=== PATIENT | male | born 1980 | race Caucasian/White ===

== ENCOUNTER 2023-05-24 08:42 | Emergency (ER) | payer BC, SELFPAY ==
[2023-05-24 08:57] VITALS: BP 128/98; PULSE 111; RESP 16; TEMP 37.4; O2SAT 98
--- NOTE | 2023-05-24 09:30 | ED.URI ---
HPI - URI/Sore Throat General Chief Complaint: Upper Respiratory Infection Stated Complaint: headcahe,bodyaches,sore throat Time Seen by Provider: 05/24/23 09:30 History of Present Illness HPI Narrative: 42 y/o male presented for c/o sore throat, nasal congestion, aches, fatigue. Onset one week. denies n/v/d/f/c. denies sick contacts. Taking otc meds without relief. Related Data Allergies Allergy/AdvReac Type Severity Reaction Status Date / Time codeine Allergy Unknown Vomiting Verified 05/24/23 09:03 Review of Systems Review of Systems: CONSTITUTIONAL: Denies body aches, fever, chills, or sweats. EYES: Denies visual changes, redness, or discharge. ENT: reports rhinorrhea, congestion, sore throat CARDIOVASCULAR: Denies chest pain, palpitations, or edema. RESPIRATORY: Denies dyspnea. GASTROINTESTINAL: Denies abdominal pain, nausea, vomiting, or diarrhea. SKIN: Denies rash, itching, or wounds. MUSCULOSKELETAL: Denies back pain, joint pain. [facility] Past Medical History Medical History (Updated 05/24/23 @ 10:21 by Franchesca Mejía APRN) No pertinent past medical history Family History Family History Father Hypertension Family history of diabetes mellitus in first degree relative Mother Hypertension Social History Social History Smoking status: Never smoker Alcohol intake: current Exam Narrative: GENERAL: mildly Ill-appearing, no acute distress. EYES: conjunctivae clear; Right lower lid stye ENT: Mucous membranes moist. TM pearly santos with normal light reflex bilaterally; no tragal tenderness. Oropharynx erythematous without lesions. Tonsils enlarged 2+ without exudate. No drooling, no hoarseness, no trismus, uvula midline. No tripod positioning, hot potato voice, or soft palate swelling. NECK: Supple. No lymphadenopathy CHEST: Clear to auscultation, breath sounds equal. No respiratory distress, speaks in full sentences. HEART: Regular rate and rhythm. No murmur heard. SKIN: Warm, dry, no rash. NEURO: Alert and oriented x3. Course Course Emergency Course: Patient is aware of diagnosis, understands and agrees to treatment plan. Anticipatory guidance given. Patient agrees to follow-up as directed and is aware of reasons to seek care at the emergency department. Portions of this record may have been created with voice recognition software Level of Care: Express Care Visit Vital Signs Vital signs: Vital Signs Temperature 99.4 F 05/24/23 08:57 Pulse Rate 111 H 05/24/23 08:57 Respiratory Rate 16 05/24/23 08:57 Blood Pressure 128/98 H 05/24/23 08:57 Pulse Oximetry 98 05/24/23 08:57 Oxygen Delivery Room Air 05/24/23 08:57 Temperature 99.4 F 05/24/23 08:57 Pulse Rate 111 H 05/24/23 08:57 Respiratory Rate 16 05/24/23 08:57 Blood Pressure 128/98 H 05/24/23 08:57 Pulse Oximetry 98 05/24/23 08:57 Oxygen Delivery Room Air 05/24/23 08:57 MDM - URI/Sore Throat MDM Narrative Medical decision making narrative: strep result reviewed with pt, will treat based on PE/CC. patient has a stye of the right lower lid, he is aware of treatment for this and had no complaints or concerns. Advise supportive treatments. Patient is appropriate for outpatient treatment and follow-up. Differential Diagnosis Differential diagnosis: Likely upper respiratory infection, viral infection and pharyngitis Lab Data Labs: Strep Screen Presumptive Negative *(Reference Range: Negative)* Discharge Plan Discharge Clinical Impression: Upper respiratory infection Patient Disposition: Home, Self-Care Condition: Stable Instructions: Antibiotic Form, Upper Respiratory Infection (ED) Additional Instructions: - Take the antibiotic as directed. Fever and sore throat typically resolve within one
== END 2023-05-24 09:40 | disposition home or self-care (01) ==
PROVIDERS: Emergency Provider Nurse Practitioner Family; PCP Family Medicine
DX: J06.9 Acute upper respiratory infection, unspecified (principal)
CPT/HCPCS: 87081; 87880; 99213; G0463

== ENCOUNTER 2023-05-26 11:48 | Emergency (ER) | payer BC, SELFPAY ==
--- NOTE | ~2023-05-26 | XR_ITS ---
EXAMINATION: XR chest 1V portable DATE: 05/26/2023 15:23 INDICATION: Shortness of breath. Cough and weakness. TECHNIQUE: A single frontal view of the chest was obtained. COMPARISON: None. FINDINGS: There is no pneumonia, pleural effusion, or pneumothorax. The heart size is normal. IMPRESSION: 1. No acute cardiopulmonary disease. Reviewed, dictated and finalized at location E. COOKING OPERATOR
[2023-05-26 12:04] VITALS: BP 133/104; PULSE 128; RESP 18; TEMP 37; O2SAT 98
[2023-05-26 12:44] LABS: Strep Group A RT-PCR NOT DETECTED (Negative)
[2023-05-26 12:56] LABS: Influenza A QL RT-PCR Negative (Negative); Influenza B QL RT-PCR Negative (Negative); RSV RNA, RT-PCR Negative (Negative); SARS-CoV-2 RNA PCR Negative (Negative)
--- NOTE | 2023-05-26 14:08 | ED.URI ---
HPI - URI/Sore Throat General Chief Complaint: Upper Respiratory Infection Stated Complaint: uri/st Time Seen by Provider: 05/26/23 14:07 History of Present Illness HPI Narrative: Patient is a 42-year-old male who presents to the emergency department this afternoon complaining of a sore throat and dehydration. Patient's states that he has been having the symptoms for the past 3 days and initially went to an urgent care who placed him on amoxicillin. Patient has been complaining of ear pain worse on the right ear. Patient states that what prompted him to come to the emergency department today is not being able to take oral fluids due to his sore throat which has caused him to become dehydrated and that was concerning for him. Patient denies any additional symptoms including chest pain, shortness of breath, nausea, vomiting, abdominal pain, dysuria, hematuria, constipation, diarrhea, melena, hematochezia, fevers or chills. Patient also denies any headaches, dizziness, lightheadedness, blurry visions, focal weakness, numbness and or tingling. There are no other modifying, alleviating, or precipitating factors at this time. Related Data Allergies Allergy/AdvReac Type Severity Reaction Status Date / Time codeine Allergy Unknown Vomiting Verified 05/24/23 09:03 Review of Systems Review of Systems: All systems are reviewed and are negative unless stated otherwise in the HPI. [facility] Past Medical History Medical History No pertinent past medical history Family History Family History Father Hypertension Family history of diabetes mellitus in first degree relative Mother Hypertension Social History Social History Smoking status: Never smoker Alcohol intake: current Exam Narrative: General: Alert, awake, afebrile, in no acute distress. HEENT: PERRL, no rhinorrhea, no post nasal drip, oropharynx clear, right tonsillar exudate, no evidence of any peritonsillar abscess, left TM erythema and right bulging TM with good light reflex bilaterally and no drainage, no mastoid swelling or tenderness to palpation. Neck: Trachea midline, no JVD, anterior cervical lymphadenopathy. Cardiovascular: Tachycardic with regular rhythm, no murmurs, rubs or gallops, no peripheral edema. Respiratory: Clear to auscultation bilaterally, no tachypnea, no wheezing, no rhonchi, no rubs, no respiratory distress. Abdomen: Soft, nontender, nondistended, no rebound, no guarding, no peritoneal signs. Musculoskeletal: No joint swelling or deformity, normal muscle tone. Skin: No rashes or petechia, no signs of infection. Psychiatric: Alert and oriented, normal behavior and judgment for situation. Neurological: Alert and oriented to person, place, and time. Follows all commands. No focal deficits, speech is clear and fluent. Course Vital Signs Vital signs: Vital Signs Temperature 98.6 F 05/26/23 12:04 Pulse Rate 128 H 05/26/23 12:04 Respiratory Rate 18 05/26/23 12:04 Blood Pressure 133/104 H 05/26/23 12:04 Pulse Oximetry 98 05/26/23 12:04 Oxygen Delivery Room Air 05/26/23 12:04 Temperature 98.6 F 05/26/23 12:04 Pulse Rate 128 H 05/26/23 12:04 Respiratory Rate 18 05/26/23 12:04 Blood Pressure 133/104 H 05/26/23 12:04 Pulse Oximetry 98 05/26/23 12:04 Oxygen Delivery Room Air 05/26/23 12:04 MDM - URI/Sore Throat MDM Narrative Medical decision making narrative: The patient was evaluated by myself in the emergency department. History is obtained from patient who is an independent historian and physical exam was performed. External medical records were reviewed at this time. IV was established and pertinent tests were ordered. Patient was administered a 1 L fluid bolus with normal saline. Repeat vital signs revealed heart rate of 100 at this
[2023-05-26] MEDS: SODIUM CHLORIDE 0.9% IV 1,000 ML 999 ML IV CONT ×2 (14:27→16:12)
[2023-05-26 15:00] VITALS: BP 128/88; PULSE 107; RESP 16; TEMP 36.7; O2SAT 99
[2023-05-26 15:30] VITALS: BP 128/84; PULSE 103; RESP 16; TEMP 36.8; O2SAT 99
[2023-05-26] MEDS: LIDOCAINE HCL 2% VISC SOLN 15 ML UDC PO (16:13)
[2023-05-26 16:30] VITALS: BP 127/84; PULSE 106; RESP 16; TEMP 36.8; O2SAT 100
[2023-05-26 16:58] VITALS: BP 134/83; PULSE 108; RESP 16; TEMP 36.8; O2SAT 100
== END 2023-05-26 17:49 | disposition home or self-care (01) ==
PROVIDERS: Emergency Medicine; Emergency Provider Emergency Medicine; PCP Family Medicine
DX: H66.90 Otitis media, unspecified, unspecified ear (principal); J06.9 Acute upper respiratory infection, unspecified; Z20.822 Contact with and (suspected) exposure to COVID-19
CPT/HCPCS: 71045; 87637; 87651; 96360; 96361; 99283; J7030

== ENCOUNTER 2023-05-29 10:26 | Inpatient (IN) | payer BC, SELFPAY ==
--- NOTE | ~2023-05-29 | CT_ITS ---
EXAMINATION: CT soft tissue neck w con DATE: 05/29/2023 12:44 INDICATION: Peritonsillar abscess. TECHNIQUE: Computed tomography (CT) of the neck was performed with 75 mL Omnipaque-350 intravenous co ntrast. Automated exposure control and iterative reconstruction technique were employed. The dose-lemuel gth product was 535.85 mGy-cm. COMPARISON: None FINDINGS: The visualized portions of the lung apices demonstrate mild scarring. There is diffuse muco radha thickening in the pharynx. The adenoids and palatine tonsils are enlarged. There is mucosal thick ening in the paranasal sinuses. There is drainage in the nasopharynx. There is mild bilateral high in ternal jugular chain lymphadenopathy. The cervical carotid arteries are normal. There is mild cervica l spondylosis. IMPRESSION: 1. Diffuse mucosal thickening in the pharynx and enlargement of the adenoids and palatine tonsils, co nsistent with inflammation. No drainable abscess. Reviewed, dictated and finalized at location E. CAL RECEPTIONIST MEDICAL ASSISTANT IMPRESSION: 1. Diffuse mucosal thickening in the pharynx and enlargement of the adenoids an d palatine tonsils, consistent with inflammation. No drainable abscess.
[2023-05-29 10:29] VITALS: BP 123/87; PULSE 110; RESP 20; TEMP 36.8; O2SAT 98
--- NOTE | 2023-05-29 11:15 | ED.GENADULT ---
HPI - General Adult General Chief complaint: Skin/Abscess/Foreign Body Stated complaint: Throat swelling Time Seen by Provider: 05/29/23 11:04 History of Present Illness HPI narrative: Patient is a 42 year old male who presents to the emergency department this morning after her stent is Urgent Care due to concern for a throat infection. Patient was seen at our facility by me 3 days ago due to pharyngitis and otitis media. At that time, patient's strep throat swab and COVID/RSV/influenza swabs were also negative. Patient was placed on amoxicillin by his primary care physician prior to his arrival to our ED 3 days ago and patient was instructed to continue the full dose of the amoxicillin and to return to the emergency department if his symptoms do not improve. Patient was noted to be dehydrated and tachycardic since he was not able to tolerate oral fluids secondary to his throat pain. He was provided with pain medications and viscous lidocaine which improved his symptoms and was discharged after symptom control. Today, urgent Care was concerned based on their exam that he is developing peritonsillar abscess since now he is drooling and has a muffled voice. Patient denies any additional symptoms including chest pain, shortness of breath, nausea, vomiting, abdominal pain, dysuria, hematuria, constipation, diarrhea, melena or hematochezia. Patient also denies any headaches, dizziness, lightheadedness, blurry visions, focal weakness, numbness and or tingling. There are no other modifying, alleviating, or precipitating factors at this time. Related Data Allergies Allergy/AdvReac Type Severity Reaction Status Date / Time codeine Allergy Unknown Vomiting Verified 05/29/23 08:44 Review of Systems Review of Systems: All systems are reviewed and are negative unless stated otherwise in the HPI. [facility] Past Medical History Medical History No pertinent past medical history Family History Family History Father Hypertension Family history of diabetes mellitus in first degree relative Mother Hypertension Social History Social History Smoking status: Never smoker Alcohol intake: current Exam Narrative: General: Alert, awake, afebrile, in mild distress. HEENT: PERRL, no rhinorrhea, no post nasal drip, oropharynx uric female with uvula deviation to the left, no visible peritonsillar abscess on the right, tonsillar exudate on the right tonsil. Neck: Trachea midline, no JVD, no lymphadenopathy. Cardiovascular: Tachycardic with regular rhythm, no murmurs, rubs or gallops, no peripheral edema. Respiratory: Clear to auscultation bilaterally, no tachypnea, no wheezing, no rhonchi, no rubs, no respiratory distress. Abdomen: Soft, nontender, nondistended, no rebound, no guarding, no peritoneal signs. Musculoskeletal: No joint swelling or deformity, normal muscle tone. Skin: No rashes or petechia, no signs of infection. Psychiatric: Alert and oriented, normal behavior and judgment for situation. Neurological: Alert and oriented to person, place, and time. Follows all commands. No focal deficits, speech is clear and fluent. Course Vital Signs Vital signs: Vital Signs Temperature 98.3 F 05/29/23 10:29 Pulse Rate 110 H 05/29/23 10:29 Respiratory Rate 20 05/29/23 10:29 Blood Pressure 123/87 05/29/23 10:29 Pulse Oximetry 98 05/29/23 10:29 Oxygen Delivery Room Air 05/29/23 10:29 Temperature 98.3 F 05/29/23 10:29 Pulse Rate 110 H 05/29/23 10:29 Respiratory Rate 20 05/29/23 10:29 Blood Pressure 123/87 05/29/23 10:29 Pulse Oximetry 98 05/29/23 10:29 Oxygen Delivery Room Air 05/29/23 10:29 Medical Decision Making MDM Narrative Medical decision making narrative: The patient was evaluated by myself in the emergency department. [place]
[2023-05-29] MEDS: SODIUM CHLORIDE 0.9% IV 1,000 ML 999 ML IV CONT (12:18)
[2023-05-29 12:23] LABS: Basophils Absolute Auto 0.1 K/mm3 (0.0-0.1); Basophils Percent Auto 0.9 % (0.2-1.2); Eosinophils Percent Auto 0.1 % (0-4.4); Hematocrit 42.9 % (42.0-52.0); Hemoglobin 14.2 g/dL (14.0-18.0); Immature Granulocyte Absolute 0.05 K/mm3 (0.00-0.031); Immature Granulocyte Percent A 0.4 % (0-0.5); Lymphocytes Absolute Auto 6.77 K/mm3 (0.9-3.2); Lymphocytes Percent Auto 49.4 % (18.3-44.2); Mean Corpuscular HGB Conc 33.1 g/dl (32-36); Mean Corpuscular Hemoglobin 29.8 pg (26-34); Mean Corpuscular Volume 90.1 fl (80-100); Mean Platelet Volume 10.3 fl (7.4-10.4); Monocytes Absolute Auto 1.5 K/mm3 (0.1-0.6); Monocytes Percent Auto 10.7 % (2.6-8.5); Neutrophils Absolute Auto 5.3 K/mm3 (1.3-6.7); Neutrophils Percent Auto 38.5 % (45.5-73.1); Platelet Count Result 243 k/mm3 (150-375); Red Blood Count 4.76 M/mm3 (4.6-6.20); Red Cell Distribution Width 13.1 % (11.5-14.5); White Blood Count 13.7 K/mm3 (4.5-10.0)
[2023-05-29 12:33] LABS: Lactic Acid Reflex 1.2 mmol/L (0.7-2.0)
[2023-05-29 12:34] LABS: Alanine Aminotransferase 184 U/L (6-50); Albumin Level 4.4 g/dL (3.5-5.1); Alkaline Phosphatase 152 U/L (38-126); Anion Gap 13 mmol/L (8-16); Aspartate Amino Transferase 82 U/L (17-59); Bilirubin,Total 1.3 mg/dL (0.2-1.3); Blood Urea Nitrogen 16 mg/dL (9-20); Carbon Dioxide 23 mmol/L (22-30); Chloride 99 mmol/L (98-107); Estimated CRCL calculation 110 ml/min; Estimated Glomerular Filt Rate > 60; Glucose 101 mg/dL (65-110); Potassium 4.1 mmol/L (3.4-5.0); Sodium 135 mmol/L (137-145)
[2023-05-29 12:35] LABS: Estimated CRCL calculation 110 ml/min; Estimated Glomerular Filt Rate > 60
[2023-05-29 12:45] LABS: Platelet Estimate Adequate (Adequate)
[2023-05-29 12:46] LABS: Atypical Lymphocytes Present; Schistocytes None Seen (NORMAL); Smudge Cells PRESENT
--- NOTE | 2023-05-29 15:13 | PM.IMHP ---
H&P: HPI History of Present Illness Date/Time: 05/29/23 15:13 Chief Complaint: Sore Throat Narrative: 42 y/o M presents here with sore throat, pain with swallowing, and PMFSH Past Medical History Medical History No pertinent past medical history Family History Family History Father Hypertension Family history of diabetes mellitus in first degree relative Mother Hypertension Social History Social History Smoking status: Never smoker Alcohol intake: current Drinks per week: 2 Substance use: never Do You Feel Safe in your Home?: Yes Lack of Transportation: No Lack of Food: Never True Current Housing: I Have Housing Concerned About Future Housing: No Difficulty Paying Gas/Electric Bills: No Difficulty Paying for Meds: No Currently Unemployed: No Education: Don't Know Difficulty w/ Childcare or Family Care: No Spiritual care concerns: No Meds Home Medications and Allergies Home Medications Medication Instructions Recorded Confirmed Type amoxicillin 500 mg tablet 1,000 mg PO DAILY 10 days #20 tabs 05/24/23 05/29/23 Rx acetaminophen 325 mg tablet 500 mg PO Q6H PRN mild pain 05/29/23 05/29/23 History (Tylenol) Allergies Allergy/AdvReac Type Severity Reaction Status Date / Time codeine Allergy Unknown Vomiting Verified 05/29/23 17:27 Vital Signs Vital Signs - 24 hr 05/29/23 10:29 Temperature 98.3 F Pulse Rate 110 H Respiratory Rate 20 Blood Pressure 123/87 Pulse Oximetry 98 Oxygen Delivery Room Air H&P: Results Labs Labs: Short CBC 05/29/23 Range/Units 12:11 WBC 13.7 H (4.5-10.0) K/mm3 Hgb 14.2 (14.0-18.0) g/dL Hct 42.9 (42.0-52.0) % Plt Count 243 (150-375) k/mm3 BMP 05/29/23 05/29/23 12:11 12:34 Sodium 135 L Potassium 4.1 Chloride 99 Carbon Dioxide 23 BUN 16 Creatinine 0.90 0.90 Glucose 101 Calcium 9.0 Liver Function 05/29/23 Range/Units 12:11 Total Bilirubin 1.3 (0.2-1.3) mg/dL AST 82 H (17-59) U/L ALT 184 H (6-50) U/L Alkaline Phosphatase 152 H (38-126) U/L Albumin 4.4 (3.5-5.1) g/dL
[2023-05-29] MEDS: SODIUM CHLORIDE 0.9% IV 1,000 ML 150 ML IV CONT (15:33)
[2023-05-29] MEDS: AMPICILLIN SULB 3 GM/NS 100 ML 3 GM/100 ML VIAL IVPB ×2 (15:33→21:12)
[2023-05-29 15:35] VITALS: BP 140/80; PULSE 97; RESP 18; TEMP 36.3; O2SAT 98
[2023-05-29 17:30] VITALS: BP 132/86; PULSE 94; RESP 18; TEMP 37.2; O2SAT 100; BMI 25.2
--- NOTE | 2023-05-29 17:33 | ADMGEN ---
This patient, Erlin Tapia, was admitted to 3 [facility] Surg Room 326-01. Patient/family oriented to hospital policies and general routines including ID bracelet, bed and alarms, visiting hours, pain management, procedures, bathroom and other care routines, personal items, smoking policy, room service/diet, and visiting hours. Information on how to activate the Rapid Response Team has been discussed. Patient/Family are encouraged to report perceived risks to care and to ask questions if they do not understand what they are told or what they should do. Report from Korina in ER.
--- NOTE | 2023-05-29 19:16 | PM.IMHP ---
H&P: HPI History of Present Illness Date/Time: 05/29/23 19:16 Chief Complaint: Sore Throat Narrative: 42 y/o M presents here with sore throat with no PMH. Patient reports that he developed cold-like symptoms during the 1st week of May. Developed a worsening sore throat on 05/24, was then seen at the [facility] in [place]. Tested for strep which was negative. However given clinical appearance i.e. tonsillar enlargement without exudate he was discharged with amoxicillin 500 mg b.i.d. times 10 days. Sore throat continue to worsen and patient became dehydrated, then presented to [facility] where he reported he had developed worsening ear pain, specifically on the right. Patient was diagnosed with acute otitis media. Patient was given fluids and discharged home with recommendation to continue the amoxicillin and supportive measures. Patient then followed up with his PCP today, 05/29, and was referred to the ED due to concern for a peritonsillar abscess when the PCP noted that patient's voice sounded muffled and patient was having difficulty tolerating secretions. ED workup revealed leukocytosis of 13.7. CT of the neck/soft tissue showed diffuse mucosal thickening in the pharynx and enlargement of the adenoids and palatine tonsils, consistent with inflammation. No drainable abscess. Patient currently tolerating secretions and not experiencing shortness of breath. Patient still not able to tolerate solids. Review of Systems Review of Systems: All systems reviewed & are unremarkable except as noted in HPI and below PMFSH Past Medical History Medical History No pertinent past medical history Family History Family History Father Hypertension Family history of diabetes mellitus in first degree relative Mother Hypertension Social History Social History Smoking status: Never smoker Alcohol intake: current Drinks per week: 2 Substance use: never Do You Feel Safe in your Home?: Yes Lack of Transportation: No Lack of Food: Never True Current Housing: I Have Housing Concerned About Future Housing: No Difficulty Paying Gas/Electric Bills: No Difficulty Paying for Meds: No Currently Unemployed: No Education: Don't Know Difficulty w/ Childcare or Family Care: No Spiritual care concerns: No Meds Home Medications and Allergies Home Medications Medication Instructions Recorded Confirmed Type amoxicillin 500 mg tablet 1,000 mg PO DAILY 10 days #20 tabs 05/24/23 05/29/23 Rx acetaminophen 325 mg tablet 500 mg PO Q6H PRN mild pain 05/29/23 05/29/23 History (Tylenol) Allergies Allergy/AdvReac Type Severity Reaction Status Date / Time codeine Allergy Unknown Vomiting Verified 05/29/23 17:27 Vital Signs Vital Signs - 24 hr 05/29/23 10:29 05/29/23 15:35 05/29/23 17:30 Temperature 98.3 F 97.4 F L 98.9 F Pulse Rate 110 H 97 94 Respiratory Rate 20 18 18 Blood Pressure 123/87 140/80 132/86 Pulse Oximetry 98 98 100 Oxygen Delivery Room Air Exam Const: Other: Ill-appearing, uncomfortable, and . HENMT: Mouth: Yes dry mucous membranes Other: No uvula deviation, exudate to right tonsil, and tonsils grade 3. Tongue dry, brown and fuzzy appearance centrally. Neck: Lymphatic: lymphadenopathy Other: Bilateral, cervical chain Resp: Effort & Inspection: normal respiratory effort Auscultation: clear to auscultation bilaterally Cardio: Rate: tachycardic Rhythm: regular rhythm Other: S1-S2 present without murmur, rub, ectopy Skin: General skin exam: normal color and no rashes or lesions noted Wounds: no wounds Neuro: Speech: normal speech Motor exam (neuro): 5/5 motor strength present throughout Sensory Exam: normal sensation Other: A/O4
[2023-05-29 21:58] VITALS: BP 142/83; PULSE 88; RESP 16; TEMP 36.6; O2SAT 96
[2023-05-29] MEDS: LACTATED RINGERS 1,000 ML 100 ML IV CONT (23:15)
[2023-05-30] MEDS: AMPICILLIN SULB 3 GM/NS 100 ML 3 GM/100 ML VIAL IVPB ×4 (03:49→20:00)
[2023-05-30 05:58] VITALS: BP 137/81; PULSE 73; RESP 20; TEMP 36.8; O2SAT 96
[2023-05-30 06:34] LABS: Basophils Percent Auto 0.5 % (0.2-1.2); Hematocrit 40.4 % (42.0-52.0); Hemoglobin 13.4 g/dL (14.0-18.0); Immature Granulocyte Absolute 0.03 K/mm3 (0.00-0.031); Immature Granulocyte Percent A 0.4 % (0-0.5); Lymphocytes Absolute Auto 2.97 K/mm3 (0.9-3.2); Lymphocytes Percent Auto 39.5 % (18.3-44.2); Mean Corpuscular HGB Conc 33.2 g/dl (32-36); Mean Corpuscular Hemoglobin 29.8 pg (26-34); Mean Corpuscular Volume 89.8 fl (80-100); Mean Platelet Volume 10.7 fl (7.4-10.4); Monocytes Absolute Auto 0.2 K/mm3 (0.1-0.6); Monocytes Percent Auto 2.4 % (2.6-8.5); Neutrophils Absolute Auto 4.3 K/mm3 (1.3-6.7); Neutrophils Percent Auto 57.2 % (45.5-73.1); Platelet Count Result 241 k/mm3 (150-375); Red Cell Distribution Width 12.9 % (11.5-14.5); White Blood Count 7.5 K/mm3 (4.5-10.0)
[2023-05-30 07:04] LABS: Anion Gap 12 mmol/L (8-16); Blood Urea Nitrogen 14 mg/dL (9-20); Calcium 8.7 mg/dL (8.4-10.2); Carbon Dioxide 22 mmol/L (22-30); Chloride 102 mmol/L (98-107); Estimated CRCL calculation 139 ml/min; Estimated Glomerular Filt Rate > 60; Glucose 157 mg/dL (65-110); Potassium 4.1 mmol/L (3.4-5.0); Sodium 136 mmol/L (137-145)
[2023-05-30] MEDS: ENOXAPARIN 40 MG/0.4 ML SYRINGE SUB-Q (08:38)
--- NOTE | 2023-05-30 13:15 | PM.IMPN ---
Progress Note: A&P Assessment and Plan (1) Sepsis: Code(s): A41.9 - Sepsis, unspecified organism Status: Acute Assessment and Plan: Patient met SIRS criteria with tachycardia, leukocytosis related to acute pharyngitis. No signs of organ dysfunction. BCx NGTD Group A Strept Cx from 05/24 was negative. He was given 1 L bolus and then IV fluids. Fluids off now. WBC normal and HR normal. (2) Pharyngitis: Code(s): J02.9 - Acute pharyngitis, unspecified Status: Acute Assessment and Plan: Patient presents with severe sore throat. CT Neck/Soft Tissue shows?diffuse mucosal thickening in the pharynx and enlargement of the adenoids and palatine tonsils, consistent with inflammation. No drainable abscess. He failed outpatient therapy with Amoxicillin 500 BID. ED provider spoke with on-call ENT provider and reviewed case and imaging. He did not believe patient needed ENT interventions at this time but recommend admission, IV antibiotics, and Decadron. Does not need to see inpatient unless no improvement. Decadron 10 mg q.6 x5 ordered. Unasyn started. Patient feels much better since starting abx and steroids. He is tolerating normal diet. Continue Unasyn. Continue steroids through today. Home tomorrow if continues to feel well Plan DVT Prophylaxis: Lovenox Code Status: Full Code Subjective Date/time seen: 05/30/23 13:15 Interval history: 42yo healthy male here for sore throat. Slept well last night. Throat pain is much better. He is able to eat and tolerate this well. Voices mildly scratchy. Exam Narrative: AF 98.2 137/81 73 20 96% ra Gen - NARD HEENT -oropharynx is open with minimal edema and erythema. Light coating noted on the tongue. Moist mucous membranes Chest - CTA bilaterally, nml RR CV - RRR S1/S2 Abd - Soft, NT/ND, Positive BS Ext - No pedal edema Psych - Nml mood and affect Skin - Warm and dry Objective Data Vital Signs Vital Signs: Vital Signs - 24 hr 05/29/23 15:35 05/29/23 17:30 05/29/23 20:00 Temperature 97.4 F L 98.9 F Pulse Rate 97 94 Respiratory Rate 18 18 Blood Pressure 140/80 132/86 Pulse Oximetry 98 100 Oxygen Delivery Room Air 05/29/23 21:58 05/30/23 05:58 Temperature 98 F 98.2 F Pulse Rate 88 73 Respiratory Rate 16 20 Blood Pressure 142/83 H 137/81 Pulse Oximetry 96 96 Oxygen Delivery Intake/Output Intake/Output: Intake & Output 05/27/23 05/28/23 05/29/23 05/30/23 23:59 23:59 23:59 23:59 Intake Total 2570 1330 Balance 2570 1330 Meds/Results Medications: Active Medications Generic Name Dose Route Start Last Admin Trade Name Freq PRN Reason Stop Dose Admin Acetaminophen 500 mg 05/29/23 21:28 Acetaminophen 500 Mg Tablet PO Q6H PRN mild pain 1-3 Dexamethasone Sodium Phosphate 10 mg 05/30/23 00:00 05/30/23 11:19 Dexamethasone Sod Phos Inj 10 Mg/Ml 1 Ml Vial IV PUSH 05/31/23 00:01 10 mg Q6HR ROSALINDA Administration Enoxaparin Sodium 40 mg 05/30/23 09:00 05/30/23 08:38 Enoxaparin 40 Mg/0.4 Ml Syringe SUB-Q 40 mg DAILY ROSALINDA Administration Ampicillin Sodium/Sulbactam Sodium 3 gm in 100 mls @ 200 mls/hr 05/29/23 15:00 05/30/23 09:16 Unasyn 3 Gm/Ns 100 Ml IVPB Infused Q6H ROSALINDA Infusion Ondansetron HCl 4 mg 05/29/23 22:44 Ondansetron Inj 4 Mg/2 Ml Vial IV PUSH Q6H PRN Nausea And Vomiting Radiology Results: ITS Impressions Soft Tissue Neck CT 05/29/23 12:46 IMPRESSION: 1. Diffuse mucosal thickening in the pharynx and enlargement of the adenoids and palatine tonsils, consistent with inflammation. No drainable abscess. Labs Labs: Laboratory Results - last 24 hr 05/30/23 05/30/23 06:08 06:09 WBC 7.5 RBC 4.50 L Hgb 13.4 L Hct 40.4 L MCV 89.8 MCH 29.8 MCHC 33.2 RDW 12.9 Plt Count 241 MPV 10.7 H Immature Gran % (Auto) 0.4 Neut % (Auto) 57.2 Lymph % (Auto) 39.5 [place] % (Auto) 2.4 L
[2023-05-30 14:00] VITALS: BP 125/81; PULSE 76; RESP 16; TEMP 36.6; O2SAT 96
[2023-05-30 19:39] VITALS: O2SAT 97
[2023-05-30 21:19] VITALS: BP 136/92; PULSE 88; RESP 16; TEMP 36.6; O2SAT 95
[2023-05-31] MEDS: AMPICILLIN SULB 3 GM/NS 100 ML 3 GM/100 ML VIAL IVPB ×2 (02:01→08:29)
[2023-05-31 06:00] VITALS: BP 131/87; PULSE 71; RESP 20; TEMP 36.7; O2SAT 97
[2023-05-31] MEDS: ENOXAPARIN 40 MG/0.4 ML SYRINGE SUB-Q (08:30)
[2023-05-31 09:40] VITALS: O2SAT 96
--- NOTE | 2023-05-31 11:58 | PM.DS ---
DS: Admitting Diagnosis Discharge Date 05/31/23 Admitting Diagnosis Sore throat DS: Discharge Diagnosis Discharge Diagnosis (1) Sepsis: Code(s): A41.9 - Sepsis, unspecified organism Status: Acute (2) Pharyngitis: Code(s): J02.9 - Acute pharyngitis, unspecified Status: Acute DS: Summary Hospital Course Reason for hospitalization: 42yo healthy male here for sore throat. Please see H&P for details. Hospital Course: Patient presents with severe sore throat. Patient met SIRS criteria with tachycardia, leukocytosis related to acute pharyngitis. No signs of organ dysfunction. BCx NGTD. Group A Strept Cx from 05/24 was negative. He was given 1 L bolus and then IV fluids. WBC normal and HR normal. CT Neck/Soft Tissue shows?diffuse mucosal thickening in the pharynx and enlargement of the adenoids and palatine tonsils, consistent with inflammation. No drainable abscess. He failed outpatient therapy with Amoxicillin. ED provider spoke with on-call ENT provider and reviewed case and imaging. He did not believe patient needed ENT interventions at this time but recommend admission, IV antibiotics, and Decadron.? Does not need to see inpatient unless no improvement. He completed a course of Decadron. Unasyn started. Patient feels much better since starting abx and steroids. He is tolerating normal diet. Eating and drinking without problems. He overall did well and was able to be discharged on 05/31/23 Status at Discharge Cognitive/behavioral status at discharge: stable Time Spent with Patient Time attestation: Total time spent providing and/or coordinating discharge services: 25 minutes Time spent: Less than 30 minutes Exam Narrative: AF 98.1 131/87 71 20 96% ra Gen - NARD HEENT -oropharynx is open with minimal edema and erythema. Moist mucous membranes Chest - CTA bilaterally, nml RR CV - RRR S1/S2 Abd - Soft, NT/ND, Positive BS Ext - No pedal edema Psych - Nml mood and affect Skin - Warm and dry DS: Data Data Completed and Pending Labs on day of discharge: Preliminary micro results at discharge 05/29/23 12:11 Blood Culture - Preliminary Blood 05/29/23 12:16 Blood Culture - Preliminary Blood Discharge Plan Discharge Attending physician on discharge: Coy Borjas Discharging Clinician: Coy Borjas Anticipated Discharge Date/Time: 05/31/23 12:04 Patient Disposition: Home, Self-Care Activity: as tolerated Diet: regular Discharge Instructions: Please complete your antibiotic course even if you are starting to feel well. Contact your doctor or call 911 and come to the Emergency Room if you have fevers or other worrisome symptoms. Follow-up with your primary care provider in 1-2 weeks. Please call for appointment. Thank you for using [facility] for your health care needs. Patient Instructions: Antibiotic Form, Pharyngitis (GEN) Stand Alone Forms: General Discharge Information Follow-up/Referrals: Humberto Bautista MD [Primary Care Provider] - Call for Appointment Discharge Medications: New amoxicillin-pot clavulanate 875-125 mg tablet 1 tablet PO Q12H Qty: 15 0RF Continued acetaminophen [Tylenol] 325 mg Tablet 500 mg PO Q6H PRN (Reason: mild pain) Discontinued amoxicillin 500 mg tablet 1,000 mg PO DAILY 10 Days Qty: 20 0RF Date of admission: 05/29/23 15:12 Primary Care Provider: Humberto Bautista Admitting Provider: Phoenix Sweet Attending physician on admission: Phoenix Sweet Condition: Stable
== END 2023-05-31 12:50 | disposition home or self-care (01) | DRG 872 ==
LOC: ANHED 15:18 → ANH3MEDSUR 05-30 10:05
PROVIDERS: Student in an Organized Health Care Education/Training Program; Admitting Provider Internal Medicine; Emergency Provider Emergency Medicine; PCP Family Medicine; Visit Provider Internal Medicine
DX: A41.9 Sepsis, unspecified organism (principal); J02.9 Acute pharyngitis, unspecified
CPT/HCPCS: 36415; 70491; 71045; 80048; 80053; 83605; 85025; 87040; 87637; 87651; 96360; 96361; 99283; 99285; J0295; J1100; J1650; J7030; J7120; Q9967

== ENCOUNTER 2025-02-03 09:20 | Outpatient (CLI) | payer BC, SELFPAY ==
--- OUTSIDE RECORDS SUMMARY | 2010-02-11 19:00 | XMS_ITS | Continuity of Care Document ---
Author Organization [facility] Address [address] [place] [address] Phone Care Team Providers Care Linen Aide Name Role Phone Cota OD, Husam Unavailable Unavailable Procedures Procedure Date Cntct Lens Hydrophilic Toric Or Prism Ba llast Medical Tax Contact Lens Check Contact Lens Check Contact Lens Check Advance Directives Directive Yes / No Effective Date File Name No Information Encounters Encounter Description Practice Location Reason(s) For Visit Diagnoses Date Provider Providers Copied on Encounter [facility], [address] [place] [address] [address], [place], [place], [id number], tel:[phone] [facility] No Information Oct-0 5-201 0 Cota OD Husam. [address] , [address], [place], [place], [facility], . tel:[phone] [facility], [address] [place] [address] [address], [place], [place], [id number], [place] tel:[phone] [facility] No Information Sep-2 4-201 0 Cota OD Husam. [address], [place], [place], [facility], . tel:[phone] [facility], [id number] [place] [address] [address], [place], [place], [id number], tel:[phone] [facility] No Information Sep-1 7-201 0 Cota OD Husam. [address] , [address], [place], [address], [place]. tel:[phone] [facility], [address], [place], [place], [id number], [place] tel:[phone] [facility] No Information 7-201 0 Cota OD Husam. [address] , [address], [place], [address], [place]. tel:[phone] Family History Family Member Type Diagnosis Age At Onset No Information Payers Payer name Insurance type Covered democrat ID Authorrosemarya frandy(s) [facility] CI [id number] Social History Type Description Quantity Date Captured Comments Sex Male Smoking Status No Information Chief Complaint And Reason For Visit No Information Reason For Referral Reason For Referral No Information History Of Present Illness Encounter Date Complaint History Of Prese nt Illness No Information Functional Status Date Functional Assessmen t No Information Instructions Date Instruction Additional Infor mation No Information Assessments Type Assessment Date No Information Patient Care Teams Name Effective Dates (start - stop) Status Members No Information
--- OUTSIDE RECORDS SUMMARY | 2025-02-03 09:24 | XMS_ITS | Clinical Summary ---
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 Unavailable Primary Care Provider Unavailabl e Immunizations Immunization Administration Dates Next Due Covid-19, Mrna, Lnp-s, Pf, 30 Mcg/0.3 Ml Dose (P fizer) 04/12/2021 Social History Tobacco Use Types Packs/Day Years Used Date Smoking Tobacco: Never Assessed Sex and Gender Information Value Date Recorded Sex Assigned at Not on file Legal Sex Male 7:48 PM CDT Gender Identity Not on file Sexual Orientation Not on file Plan of Treatment Health Maintenance Due Date Last Done Comments Hepatitis C Virus (HCV) Screening 1981 TdaP Immunization 1981 Hepatitis B Immunization (1 of 3 - 19+ 3-dose series) 2000 Human Papillomavirus (HPV) Immunization (1 - 3-dose SCDM series) 2008 SARS-COV-2 Immunization ( season) 2024 04/12/2021, 08/28/2020, 08/07/2020 Influenza Immunization (#1) 01/09/202506/2020, 03/20/2020, 02/19/2016 Respiratory Syncytial Virus (RSV) Immunization (Adult) (1 - 1-dose 75+ series) 2056 DTaP/Tdap/Td Immunization Discontinued 1995, 10/20/1986, 04/28/1983, Additional history exists Meningococcal Immunization (ACWY) Aged Out No longer eligible based on patient's age to complete this topic Pneumococcal Immunization Combined Aged Out No longer eligible based on patient's age to complete this topic Rotavirus Immunization Aged Out No lo nger eligible based on patient's age to complete this topic
--- OUTSIDE RECORDS SUMMARY | 2025-02-03 09:24 | XMS_ITS | Clinical Summary ---
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 20 Tablet 3 Active Active Problems No known active problems Social History Tobacco Use Types Packs/Day Years Used Date Smoking Tobacco: Never Smokeless Tobacco: Never Tobacco Cessation:Counseling Given: Yes Sex and Gender Information Value Date Recorded Sex Assigned at Not on file Legal Sex Male 2:57 PM CDT Gender Identity Not on file Sexual Orientation Not on file Plan of Treatment Health Maintenance Due Date Last Done Comments DTAP/TDAP/TD VACCINES (1 - Tdap) 2000 HEPATITIS B VACCINES (1 of 3 - 19+ 3-dose series) 10/09 HPV VACCINES (1 - 3-dose SCDM series) 2008 INFLUENZA VACCINE (#1) 2024 COVID-19 Vaccine (2024- season) 01/09/202507/2020 Insurance BC[employer] [facility]
== END 2025-02-03 09:21 | disposition home or self-care (01) ==
LOC: ANHLAB 09:21
PROVIDERS: PCP Family Medicine
DX: J02.9 Acute pharyngitis, unspecified (principal)
CPT/HCPCS: 87070